=== PATIENT | male | born 1990 | race Caucasian/White ===

== ENCOUNTER 2022-05-17 20:39 | Emergency (ER) | payer OTHER ==
[~2022-05-17] VITALS: Ht 188 cm; Wt 163.3 kg
[2022-05-18 03:53] VITALS: BP 137/74
[2022-05-18] MEDS ORDERED: IBUP-2077 PO (04:52)
== END 2022-05-18 05:23 | disposition home or self-care (01) ==
LOC: EDSEX 20:39 → EDH 20:39
DX: S63.616A Unspecified sprain of right little finger, initial encounter (principal); I10 Essential (primary) hypertension; Z90.89 Acquired absence of other organs; Y08.89XA Assault by other specified means, initial encounter; Y93.89 Activity, other specified; Y92.89 Other specified places as the place of occurrence of the external cause; Y99.0 Civilian activity done for income or pay
CPT/HCPCS: 29125; 73090; 73130